=== PATIENT | female | born 1935 | race Caucasian/White ===

== ENCOUNTER 2023-12-19 12:44 | Outpatient (CLI) | payer MEDICARE, SELFPAY ==
--- NOTE | ~2023-12-19 | US_ITS ---
EXAMINATION: US abdomen limited DATE: 12/19/2023 13:05 INDICATION: R79.89 - Other specified abnormal findings of blood chemi... TECHNIQUE: Multiple grayscale and Doppler ultrasound images of limited portions of the abdomen were o btained. COMPARISON: None available. FINDINGS: The visualized portions of the pancreas are normal. Course hepatic parenchymal echogenicity . Liver surface nodularity. Normal hepatopetal flow in the main portal vein. Nonmobile amorphous low- level echogenicity along the gallbladder wall, likely gallbladder sludge. No gallbladder wall thicken ing or pericholecystic fluid. The common bile duct measures 4 mm. There was no sonographic King sig n. IMPRESSION: Cirrhosis. Biliary sludge. Reviewed, dictated and finalized at location K. IMPRESSION: Cirrhosis. Biliary sludge.
== END 2023-12-19 12:45 ==
LOC: GOSHIMG 12:46
PROVIDERS: PCP Internal Medicine; Visit Provider Internal Medicine
DX: R79.89 Other specified abnormal findings of blood chemistry (principal); K74.60 Unspecified cirrhosis of liver; K83.8 Other specified diseases of biliary tract
CPT/HCPCS: 76705

== ENCOUNTER 2024-04-04 12:48 | Outpatient (CLI) | payer MEDICARE, SELFPAY | END 2024-04-04 12:49 | disposition home or self-care (01) | LOC: ANHAUDASC 12:49 | PROVIDERS: PCP Internal Medicine; Visit Provider Internal Medicine | DX: H90.3 Sensorineural hearing loss, bilateral (principal) | CPT/HCPCS: 92557; 92567 ==